=== PATIENT | male | born 1990 | race Caucasian/White ===

== ENCOUNTER 2025-06-30 15:21 | Emergency (ER) | payer OTHER ==
[~2025-06-30] VITALS: Ht 177.8 cm; Wt 69.0 kg
[2025-06-30 15:26] VITALS: BP 125/78; PULSE 80; RESP 18; TEMP 98.6; O2SAT 98
== END 2025-06-30 16:08 | disposition home or self-care (01) ==
LOC: EMS 15:21
DX: Z20.2 Contact with and (suspected) exposure to infections with a predominantly sexual mode of transmission (principal); F20.9 Schizophrenia, unspecified; F32.A Depression, unspecified
CPT/HCPCS: 87491; 87591; 99283